=== PATIENT | male | born 1985 | race Caucasian/White ===

== ENCOUNTER 2021-03-20 08:15 | Emergency (ER) | payer OTHER, SELFPAY ==
[2021-03-20 08:25] VITALS: BP 123/75; PULSE 67; RESP 16; TEMP 36.4; O2SAT 99
--- NOTE | 2021-03-20 08:32 | ED.EAR ---
HPI - Ear Problem General Chief complaint: Ear Stated complaint: ear pain Source: patient Mode of arrival: ambulatory Limitations: no limitations History of Present Illness HPI Narrative: 35-year-old male presented for complaint of right ear pain for about 4 days. He states at the onset he was taking ibuprofen which helped for a few days, the pain returned yesterday and was quite severe. He states he almost called into work but took ibuprofen and or earmuffs at work. He denies associated dizziness, tinnitus, headache, sore throat, nausea, vomiting, cough, fever or chills. Denies significant history of ear or sinus infections. COVID in February. Denies significant PMH. MD Complaint: ear pain Related Data Home Medications Medication Instructions Recorded Confirmed pantoprazole 40 mg PO DAILY 03/20/21 03/20/21 Review of Systems Review of Systems: CONSTITUTIONAL: Denies malaise, chills, or fever. EYES: Denies visual changes, redness, or discharge. ENT: Denies rhinorrhea, congestion, sinus pain, and sore throat. Reports right ear pain CARDIOVASCULAR: Denies chest pain, palpitations, or edema. RESPIRATORY: Denies cough or dyspnea. GASTROINTESTINAL: Denies abdominal pain, nausea, vomiting, diarrhea SKIN: Denies rash or itching. MUSCULOSKELETAL: Denies myalgia. NEUROLOGIC: Denies headache. All systems reviewed & are unremarkable except as noted in HPI and below PMFSH Past Medical History Medical History (Updated 03/20/21 @ 08:37 by Ca Wheatley APRN) Ankle fracture, left Finger fracture, right GERD (gastroesophageal reflux disease) GI bleed Right scapula fracture Surgical History Surgical History No history of previous surgery Social History Social History Smoking status: Never smoker Alcohol intake: current Substance use: never Substance use type: does not use Comments At time of signature, agree with nursing past medical, surgical, social and family history. There is no relevant family history pertinent to the presenting complaint Exam Narrative: GENERAL: Well-appearing, well-nourished, and in no acute distress. HEAD: Normocephalic EYES: PERRLA, conjunctivae clear ENT: Nares clear. Mucous membranes moist. TM pearly lopez with dull light reflex bilaterally;erythema to right canal, no tragal tenderness. Oropharynx without erythema or lesionsor exudate, no drooling, no hoarseness, no trismus, uvula midline. NECK: Supple. No lymphadenopathy CHEST: Clear to auscultation, breath sounds equal. No wheezing, rhonchi, rales, or stridor. No respiratory distress, speaks in full sentences. HEART: Regular rate and rhythm. No murmur heard. SKIN: Warm, dry, no rash. NEURO: Alert and oriented x3. PSYCH: Normal mood and affect Course Course Emergency Course: Patient is aware of diagnosis, understands and agrees to treatment plan. Anticipatory guidance given. Patient agrees to follow-up as directed and is aware of reasons to seek care at the emergency department. Portions of this record may have been created with voice recognition software Level of Care: Express Care Visit Vital Signs Vital signs: Vital Signs Temperature 97.5 F L 03/20/21 08:25 Pulse Rate 67 03/20/21 08:25 Respiratory Rate 16 03/20/21 08:25 Blood Pressure 123/75 03/20/21 08:25 Pulse Oximetry 99 03/20/21 08:25 Temperature 97.5 F L 03/20/21 08:25 Pulse Rate 67 03/20/21 08:25 Respiratory Rate 16 03/20/21 08:25 Blood Pressure 123/75 03/20/21 08:25 Pulse Oximetry 99 03/20/21 08:25 Reviewed Medical Decision Making MDM Narrative Medical decision making narrative: Differential diagnosis considered: Coronavirus, strep pharyngitis, allergic rhinitis, upper respiratory tract infection, sinusitis, rhinosinusitis, nasopharyngitis, viral pharyngitis, otitis media, otitis externa, eustachian tube dysfuncti
== END 2021-03-20 08:45 | disposition home or self-care (01) ==
PROVIDERS: Emergency Provider Nurse Practitioner Family; PCP Physician Assistant
DX: H92.01 Otalgia, right ear (principal); K21.9 Gastro-esophageal reflux disease without esophagitis
CPT/HCPCS: 99213; G0463